=== PATIENT | male | born 1990 | race Caucasian/White ===

== ENCOUNTER → 2018-08-13 | Outpatient (CLI) | payer BC, OTHER ==
--- NOTE | 2018-08-14 11:44 | XR ---
EXAMINATION TYPE: XR lumbosacral spine min 4V DATE OF EXAM: 08/13/2018 CLINICAL HISTORY: Intermittent low back pain TECHNIQUE: Frontal, lateral, and oblique images of the lumbar spine are obtained. COMPARISON: None FINDINGS: There are 5 lumbar type vertebral bodies identified. The lumbar spine shows satisfactory alignment without evidence of acute fracture or dislocation. Vertebral body heights and disk space he ights are within normal limits. The oblique images appear within normal limits. The overlying soft tissue appears unremarkable. IMPRESSION: No acute fracture or malalignment is seen in the lumbar spine.
== END | disposition home or self-care (01) ==
LOC: RADXRMAIN 16:16
PROVIDERS: ATTEND Family Medicine
DX: M54.5 Low back pain (principal)
CPT/HCPCS: 72110

== ENCOUNTER 2018-10-18 08:01 | Day surgery (SDC) | payer OTHER, MEDICAID ==
[2018-10-16 12:23] VITALS: BMI 27.1
[~2018-10-18 08:01] MED LIST: LACTATED RINGERS 1,000 ML IV SCH
[2018-10-18 08:13] VITALS: TEMP 98.2
[2018-10-18] MEDS ORDERED: LACTATED RINGERS 1,000 ML IV ONE ×2 (08:13)
[2018-10-18] MEDS ORDERED: LIDOCAINE 1% 20 ML VIAL (10MG/ML) FOR IV START INTRADERMA ONE (08:14)
[2018-10-18] MEDS ORDERED: PROPOFOL 10 MG/ML 20 ML VIAL IV ONE (08:38)
--- NOTE | 2018-10-18 08:48 | P.PCN ---
Date of Procedure: 10/18/18 Procedure(s) Performed: BRIEF HISTORY: Patient is a 27-year-old, pleasant, male, scheduled for an upper endoscopy as a part of value should of approximately history of GERD. He tried omeprazole 20 mg daily for a year with the help. His and scheduled for an upper endoscopy to evaluate further.. PROCEDURE PERFORMED: Esophagogastroduodenoscopy with biopsy. PREOPERATIVE DIAGNOSIS: Long-standing history of GERD. IV sedation per anesthesia. PROCEDURE: After informed consent was obtained, the patient was brought into the endoscopy unit. IV sedation was administered by Anesthesia under continuous monitoring. Initially the Olympus GIF-140 video endoscope was inserted into the mouth. Esophagus intubated without any difficulty. It was gradually advanced into the stomach and duodenum and carefully examined. The bulb and the second part of the duodenum appeared normal. The scope at this time was withdrawn to the stomach, adequately insufflated with air, and upon careful examination, mucosa of the antrum had gastritis and biopsies were done from this area. The, body, cardia and the fundus appeared normal. The scope was then withdrawn into the esophagus. The GE junction was located at 39 cm from the incisors. There was a small sliding Hiatal hernia noted. The GE junction appeared irregular and there was a 3 mm tongue of Veerett's appearing mucosa proximal to the GE junction was biopsied. The rest of the esophagus appeared normal. There were no erosions or ulcerations seen and the patient tolerated the procedure well. IMPRESSION: 1. Mild antral gastritis. 2. Irregular GE junction with questionable short segment Everett's esophagus status post biopsy 3. Small hiatal hernia. RECOMMENDATIONS: The findings of this examination were discussed with the patient as well as his family.. He was advised to follow with the biopsy results. He can start [id number] Zantac 150 milligrams twice daily for reflux symptoms and following reflux measures. If he still remains symptomatic he was advised to follow up in office in 6 weeks.
[2018-10-18 09:15] VITALS: BP 126/75; PULSE 93; RESP 17
== END 2018-10-18 09:45 | disposition home or self-care (01) ==
LOC: ORWHC2ENDO 08:01
PROVIDERS: ATTEND Internal Medicine Gastroenterology
DX: K21.9 Gastro-esophageal reflux disease without esophagitis (principal); K44.9 Diaphragmatic hernia without obstruction or gangrene; K29.50 Unspecified chronic gastritis without bleeding; F17.200 Nicotine dependence, unspecified, uncomplicated; Z79.1 Long term (current) use of non-steroidal anti-inflammatories (NSAID); Z79.899 Other long term (current) drug therapy
CPT/HCPCS: 88305; 43239; J2704

== ENCOUNTER → 2020-02-17 | Outpatient (CLI) | payer OTHER | END | disposition home or self-care (01) | LOC: LABWHC1 13:33 | PROVIDERS: ATTEND Emergency Medicine | DX: Z20.828 Contact with and (suspected) exposure to other viral communicable diseases (principal) | CPT/HCPCS: U0003; C9803 ==

== ENCOUNTER → 2023-09-27 | Outpatient (CLI) | payer BC ==
--- NOTE | 2023-09-27 19:17 | CT ---
EXAMINATION TYPE: CT abdomen pelvis w con DATE OF EXAM: 09/27/2023 COMPARISON: NONE HISTORY: 32-year-old male R10.32 Left side abdominal pain x 2 weeks TECHNIQUE: Contiguous axial scanning of the abdomen and pelvis following administration of 100 ml Iso kristina 300 IV contrast. Delayed images through the kidneys and coronal/sagittal reconstructions perform ed. CT DLP: 607.8 mGycm Automated exposure control for dose reduction was used. FINDINGS: The heart is normal size without pericardial effusion. Lung bases clear without pleural effusion. Prominent ingested debris distending the stomach. Prominent fluid-filled small bowel loops clustered in the lower abdomen and pelvis. No dilated small bowel, free fluid, or free air. A few prominent but nonenlarged right lower quadrant is adjacent lymph nodes measuring up to 8 mm pro bably reactive/post inflammatory. Normal appendix. Mild overall stool burden. There may be mild sigmoid colonic diverticulosis. No focal liver lesion or biliary ductal dilatation. Portal venous system is patent. Gallbladder, adrenal glands, kidneys, spleen, pancreas within normal limits. The bladder is partially distended. Prostate gland upper limits of normal at 3.9 cm wide. No abnormal fluid collection in pelvis or pelvic lymphadenopathy. Bones: No osseous destructive process. IMPRESSION: 1. PROMINENT FLUID-FILLED SMALL BOWEL LOOPS IN THE LOWER ABDOMEN AND PELVIS. THIS MAY BE A TRANSIENT FINDING OR COULD REPRESENT A MILD REGIONAL ILEUS OR ENTERITIS. 2. Mild colonic diverticulosis without evidence for acute diverticulitis.
== END | disposition home or self-care (01) ==
LOC: RADCTMAIN 18:07
PROVIDERS: ATTEND Family Medicine
DX: K57.30 Diverticulosis of large intestine without perforation or abscess without bleeding (principal)
CPT/HCPCS: 74177; Q9967

== ENCOUNTER 2024-02-04 17:06 | Emergency (ER) | payer BC ==
[2024-02-04 17:35] VITALS: RESP 18
[2024-02-04] MEDS: LIDOCAINE 1% INJ 10MG/ML (20 ML MDV) SQ ONE (17:53)
[2024-02-04] MEDS: TOPICAL SKIN ADHESIVE 1 EACH AMP TOPICAL ONE (17:53)
--- NOTE | 2024-02-04 18:27 | ED ---
Wound/Laceration HPI - General Chief Complaint: Wound/Laceration Stated Complaint: Both Hand Laceration Time Seen by Provider: 02/04/24 17:42 Source: patient, RN notes reviewed Mode of arrival: ambulatory Limitations: no limitations - History of Present Illness Initial Comments: This is a 33-year-old male who presents to the emergency department for lace rations to his hand. States that he was changing a light bulb when it shattered, causing a laceration to his right thumb and left middle finger. Pain and bleeding are controlled. Tetanus vaccine is up-to-date. Denies getting any pieces of glass stuck in the wounds. - Related Data Home Medications Medication Instructions Recorded Confirmed Calcium Carbonate [Tums] 500 mg PO DIRECTED PRN 10/16/18 10/16/18 Doxylamine Succinate [Unisom] 25 mg PO HS PRN 10/16/18 10/16/18 Ibuprofen [Motrin] 800 mg PO DAILY PRN 10/16/18 10/16/18 Multivit-Min/Folic/Vit K/Lycop 1 each PO DAILY 10/16/18 10/16/18 [Men's Multivitamin Tablet] Allergies Allergy/AdvReac Type Severity Reaction Status Date / Time No Known Allergies Allergy Verified 02/04/24 17:35 Review of Systems ROS Statement: Those systems with pertinent positive or pertinent negative responses have been documented in the HPI. ROS Other: All systems not noted in ROS Statement are negative. Past Medical History Past Medical History: GERD/Reflux Additional Past Medical History / Comment(s): STATES HAVING HEARTBURN DAILY History of Any Multi-Drug Resistant Organisms: None Reported Additional Past Surgical History / Comment(s): finger surgery-rt hand Past Anesthesia/Blood Transfusion Reactions: No Reported Reaction Past Psychological History: No Psychological Hx Reported Smoking Status: Never smoker Past Alcohol Use History: Occasional Past Drug Use History: None Reported - Past Family History Mother Family Medical History: No Reported History General Exam Limitations: no limitations General appearance: alert, in no apparent distress Head exam: Present: atraumatic, normocephalic, normal inspection Respiratory exam: Present: normal lung sounds bilaterally. Absent: respiratory distress, wheezes, rales, rhonchi, stridor Cardiovascular Exam: Present: regular rate, normal rhythm, normal heart sounds. Absent: systolic murmur, diastolic murmur, rubs, gallop, clicks Extremities exam: Present: other (Flap laceration to the left middle finger with visible subcutaneous tissue. Superficial laceration to the right thumb) Neurological exam: Present: alert, oriented X3, CN II-XII intact Psychiatric exam: Present: normal affect, normal mood Course Vital Signs 02/04/24 02/04/24 17:31 18:36 Temperature 97.7 F 97.8 F Pulse Rate 74 69 Respiratory 18 18 Rate Blood Pressure 142/92 141/96 O2 Sat by Pulse 100 97 Oximetry Procedures - Laceration Laceration #1 Consent Obtained: verbal consent Indication: laceration Site: other (Right thumb) Size (cm): 1 Description: linear Depth: simple, single layer Size of Sutures: other (Exofin) Laceration #2 Consent Obtained: verbal consent Indication: laceration Site: other (Left middle finger) Size (cm): 3 Description: flap Depth: simple, single layer Anesthetic Used: lidocaine 1% Anesthesia Technique: local infiltration Amount (mls): 3 Pre-repair: wound explored, irrigated extensively Type of Sutures: nylon Size of Sutures: 5-0 Number of Sutures: 6 Technique: simple, interrupted Medical Decision Making - Medical Decision Making This is a 33-year-old male who presents to the emergency department for lacerations to his hands. Was pt. sent in by a medical professional or institution? @ -No Did you speak to anyone other than the patient for history? @ -No Did you review nursing and triage notes? @ -Yes, and I agree, it is accurate with regards to the patient's symptoms. Were old charts reviewed? @ -No Differential Diagnosis? @ -Laceration, abrasion, burn, cellulitis, this is not meant to be an all- inclusive list. EKG interpreted by me (3pts min.)? @ -Not obtained X-rays interpreted by me (1pt min.)? @ -Not obtained CT interpreted by me (1pt min.)? @ -Not obtained U/S interpreted by me (1pt. min.)? @ -Not obtained What testing was considered but not performed? (CT, X-rays, U/S, labs)? Why? @ -None What meds were considered but not given? Why? @ -None Did you discuss the management of the patient with other professionals? @ -No Did you reconcile home meds? @ -No Was smoking cessation discussed for >3mins.? @ -No Was critical care preformed (if so, how long)? @ -No Were there social determinants of health that impacted care today? How? (Homelessness, low income, unemployed, alcoholism, drug addiction, transportation, low edu. Level, literacy, decrease access to med. care, assisted, rehab)? @ -No Was there de-escalation of care discussed even if they declined? (Discuss DNR or withdrawal of care, Hospice)? @ -No What co-morbidities impacted this encounter? (DM, HTN, Smoking, COPD, CAD, Cancer, CVA, Hep., AIDS, mental health diagnosis, sleep apnea, morbid obesity)? @ -None Was patient admitted / discharged? @ -Discharged. The lacerations were cleansed. Tetanus vaccine is up-to-date. The laceration on the right thumb was repaired with Exofin. The laceration on the left middle finger was closed with sutures. He is advised to return in 7 to 10 days for suture removal. Advised ibuprofen and Tylenol as needed for pain relief. Patient discharged home in stable condition. Case discussed with ED attending Dr. Gleason. Return precautions reviewed in depth, the patient is instructed to return to the emergency department with any new, worsening, or concerning symptoms. Patient verbalized understanding. Undiagnosed new problem with uncertain prognosis? @ -None Drug Therapy requiring intensive monitoring for toxicity (Heparin, Nitro, Insulin, Cardizem)? @ -None Were any procedures done? @ -Laceration repair with exofin and sutures Diagnosis/symptom? @ -Lacerations Acute, or Chronic, or Acute on Chronic? @ -Acute Uncomplicated (without systemic symptoms) or Complicated (systemic symptoms)? @ -Uncomplicated Side effects of treatment? @ -None Exacerbation, Progression, or Severe Exacerbation] @ -Not applicable Poses a threat to life or bodily function? @ -No Disposition Clinical Impression: Laceration Disposition: HOME SELF-CARE Instructions (If sedation given, give patient instructions): Care For Your Stitches (ED) Additional Instructions: Return to the emergency department with any new, worsening, or concerning symptoms and in 7-10 days for removal of the stitches. Alternate with Ibuprofen and Tylenol as needed for pain relief. Is patient prescribed a controlled substance at d/c from ED?: No Referrals: James Gross MD [Primary Care Provider] - 1-2 days Time of Disposition: 18:27
[2024-02-04 18:37] VITALS: BP 141/96; PULSE 69; TEMP 97.8
== END 2024-02-04 18:37 | disposition home or self-care (01) ==
LOC: EC 17:06
CPT/HCPCS: 12002; 99282